=== PATIENT | female | born 1955 | race African-American/Black ===

== ENCOUNTER 2021-09-27 09:15 | Day surgery (SDC) | payer MEDICAID ==
[~2021-09-27] VITALS: Ht 165.1 cm; Wt 85.5 kg
[2021-09-27] VITALS (10 sets, daily range): BP systolic 130–156; BP diastolic 90–126; PULSE 55–90; TEMP 98
[2021-09-27] MEDS ORDERED: ASPIRIN E.C. 8181 MG PO (10:10)
[2021-09-27] MEDS ORDERED: LIPITOR 40MG TA40 MG PO (10:11)
[2021-09-27] MEDS ORDERED: ZESTRIL 20MG TA20 MG PO (10:11)
[2021-09-27] MEDS ORDERED: LASIX 20MG TABL20 MG PO (10:12)
[2021-09-27] MEDS ORDERED: PRILOSEC 20MG20 MG PO (10:12)
[2021-09-27] MEDS ORDERED: COREG 6.256.25 MG/TA PO (10:13)
[2021-09-27] MEDS ORDERED: IMDUR 30MG30 MG/TAB PO (10:13)
[2021-09-27 10:17] LABS: HEMATOCRIT 38.8 % (37.0-47.0); HEMOGLOBIN 12.8 g/dl (12.5-16.0); MEAN CELL VOLUME 78 fl (80.0-100.0); MEAN CORPUSCULAR HEMOGLOBIN 26 pg (27.0-31.0); MEAN CORPUSCULAR HGB CONC 33 g/dl (33.0-37.0); MEAN PLATELET VOLUME 12.6 fl (7.4-10.4); PLATELET COUNT 128 K/mm3 (130-400); REDCELL DISTRIBUTION WIDTH-CV 13.8 % (11.5-14.5)
[2021-09-27 10:25] LABS: INR 1.2 (0.8-3.0); PROTHROMBIN TIME 13.6 SECONDS (9.7-12.8)
[2021-09-27 10:28] LABS: PARTIAL THROMBOPLASTIN TIME 29.8 SECONDS (26.0-37.0)
[2021-09-27 10:33] LABS: CALCIUM 9.5 mg/dL (8.4-10.2); CREATININE, serum 0.69 mg/dL (0.57-1.11); POTASSIUM 3.7 mmol/L (3.5-4.5)
--- NOTE | 2021-09-27 11:35 | NUR ---
PRE PROCEDURE ASSESSMENT COMPLETED IN [facility]. SEE MERGE FOR ALL INTRA PROCEDUREAL MEDICATION ADMINISTRATION TIMES/DOSAGES AND INTRA/POST SEDATION ASSESSMENTS.
--- NOTE | 2021-09-27 16:40 | NUR ---
Pt assisted out to friend's car by wheelchair with belongings. Air was removed from TR band in 2ml increments with no bleeding or complication. Rt radial puncture site dressed with folded 2x2 and bandaid. Pt is steady on feet in room. INT DC'd with catheter intact. She expressed understanding of DC instructions.
== END 2021-09-27 16:38 | disposition home or self-care (01) ==
LOC: COL.CAR 09:15
PROVIDERS: Internal Medicine Cardiovascular Disease
DX: I25.10 Atherosclerotic heart disease of native coronary artery without angina pectoris (principal); I11.0 Hypertensive heart disease with heart failure; I50.22 Chronic systolic (congestive) heart failure; I25.2 Old myocardial infarction; E78.5 Hyperlipidemia, unspecified; K21.9 Gastro-esophageal reflux disease without esophagitis; M54.50 Low back pain, unspecified; M17.0 Bilateral primary osteoarthritis of knee; Z79.82 Long term (current) use of aspirin; Z79.899 Other long term (current) drug therapy
CPT/HCPCS: C1769; J1644; J2250; J3010; J7030; Q9967